=== PATIENT | male | born 1995 | race Caucasian/White ===

== ENCOUNTER → 2024-08-24 17:05 | Outpatient (REF) | payer BC, SELFPAY | LOC: RAD 17:05 | PROVIDERS: ATTENDING PHYSICIAN Student in an Organized Health Care Education/Training Program; FAMILY PHYSICIAN Family Medicine | DX: R10.30 Lower abdominal pain, unspecified (principal) | CPT/HCPCS: 74177; Q9967 ==

== ENCOUNTER 2024-09-15 06:27 | Day surgery (SDC) | payer BC, SELFPAY | END 2024-09-15 15:25 | disposition home or self-care (01) | LOC: GI 06:27 | PROVIDERS: ATTENDING PHYSICIAN Student in an Organized Health Care Education/Training Program | DX: R10.30 Lower abdominal pain, unspecified (principal); R19.4 Change in bowel habit; K57.30 Diverticulosis of large intestine without perforation or abscess without bleeding; K62.5 Hemorrhage of anus and rectum; K62.89 Other specified diseases of anus and rectum; K63.5 Polyp of colon | CPT/HCPCS: 45385; 88305 ==